=== PATIENT | female | born 1990 | race Caucasian/White ===

== ENCOUNTER 2025-03-19 19:45 | Outpatient (REF) | payer OTHER, SELFPAY ==
--- OUTSIDE RECORDS SUMMARY | 2025-03-19 14:30 | XMS_ITS | Encounter Summary ---
Author Organization [facility] Address [address] [facility] [place] [address] Care Team Providers Care Supervisor Operations Name Role Phone Juan Miguel Giordano MD Primary Care Provider [phone] Bety Jackson MD Unavailable Reason for Visit * Reason Comments Well Women Visit Encounter Details Date Type Department Care Team (Late Contact Info) Description 03/19/2025 2:30 PM EDT Office Visit [facility] OB [address] [place] [phone] [place] DO [address] [facility] [place] [address] Well woman exam with routine gynecological exam; Breast lump on right side at 10 o'clock position Social History Tobacco Use Types Packs/Day Years Used Date Smoking Tobacco: Never Smokeless Tobacco: Never Alcohol Use Standard Drinks/Week Comments Not Currently 0 (1 standard drink = 0.6 oz pur e alcohol) Comments Unknown Sex and Gender Information Value Date Recorded Sex Assigned at Not on file Legal Sex Female 6:46 PM EDT Gender Identity Not on file Sexual Orientation Not on file documented as of this encounter Last Filed Vital Signs Vital Sign Reading Time Taken Comments Blood Pressure 140/88 03/19/2025 2:49 PM EDT Pulse - - Temperature - - Respiratory Rate - - Oxygen Saturation - - Inhaled Oxygen Concentration - - Weight 68.9 kg (151 lb 12.8 oz) 03/19/2025 2:49 PM EDT Height - - Body Mass Index 22.42 04/06/2021 12:00 PM EDT documented in this encounter Plan of Treatment Upcoming Encounters Date Type Department Care Team (Late st Contact Info) Description 03/22/2025 1:30 PM EDT Office Visit [facility] [address] [facility] [place] [address] Juan Miguel Butt, DPAleida [address] [facility] [place] [address] 03/24/2026 3:00 PM EDT Office Visit [facility] OB [address] [facility] [place] [address] [place]es, DO [address] [facility] [place] [address] Scheduled Orders Name Type Priority Associated Diagnoses Orde r Schedule Pap Smear Pathology and Cytology Routine Well woman exam with routine gynecological exam Ordered: 03/19/2025 HPV DNA probe, amplified Microbiology Routine Well woman exam with routine gynecological exam Ordered: 03/19/2025 Bilateral diagnostic mammogram Imaging Routine Breast lump on right side at 10 o'clock position Expected: 03/19/2025 (Approximate), Expires: 05/20/2026 documented as of this encounter Visit Diagnoses Diagnosis Well woman exam with routine gynecological exam Routine gynecological examination Breast lump on right side at 10 o'clock position Lump or mass in breast documented in this encounter Care Teams Supervisor Operations Relationship Specialty Start Date End Date Juan Miguel Giordano MD [address] [place] [phone] PCP - General 02/07/25 Bety Jackson MD [address] [place] [address] Referring Physician Family Medicine 02/07/25 documented as of this encounter
--- OUTSIDE RECORDS SUMMARY | 2025-03-19 19:49 | XMS_ITS | Encounter Summary ---
Author Organization [facility] Address [address] [place] [address] Care Team Providers Care Dray Truck Driver Name Role Phone Ramirez Bob Primary Care Provider [phone] Source Comments In the event this information is protected by the Federal Confidentiality of Alcohol and Drug AbusePatient Records regulations: The Federal rules restrict any use of the information to criminally investigate or prosecute any alcohol or drug abuse patient.[facility] Encounter Details Date Type Department Care Team (Late st Contact Info) Description 07/09/2020 Patient Msg Rheumatology [address] [phone] Omaira Guzman MD [address] [place], [place] [id number] 07/09 lab results Social History Tobacco Use Types Packs/Day Years Used Date Smoking Tobacco: Never PHQ-2 Answer Date Recorded PHQ-2 score 2 05/09/2020 Comments Unknown Sex and Gender Information Value Date Recorded Sex Assigned at Not on file Legal Sex Female 4:20 PM EDT Gender Identity Not on file Sexual Orientation Not on file COVID-19 Exposure Response Date Recorded In the last month, have you been in contact with someone who was confirmed or suspected to have Coronavirus / COVID-19? No / Unsure 07/09/2020 2:06 PM EDT documented as of this encounter Plan of Treatment Not on file documented as of this encounter Visit Diagnoses Not on filedocumented in this encounter Care Teams Dray Truck Driver Relationship Specialty Start Date End Date Ramirez Bob PA [address] [place] [address] PCP - General Family Medicine 04/13/19 documented as of this encounter
--- OUTSIDE RECORDS SUMMARY | 2025-03-19 19:49 | XMS_ITS | Encounter Summary ---
Author Organization [facility] Address [address] [place] [address] Care Team Providers Care Family Support Specialist Name Role Phone Ramirez Bob Primary Care Provider [phone] Source Comments In the event this information is protected by the Federal Confidentiality of Alcohol and Drug AbusePatient Records regulations: The Federal rules restrict any use of the information to criminally investigate or prosecute any alcohol or drug abuse patient.[facility] Encounter Details Date Type Department Care Team (Late st Contact Info) Description 10/25/2020 Patient Msg Rheumatology [address] [place] [address] Omaira Guzman MD [address] [place], [place] [phone] 10/24 lab results Social History Tobacco Use Types Packs/Day Years Used Date Smoking Tobacco: Never PHQ-2 Answer Date Recorded PHQ-2 score 2 05/09/2020 Area Deprivation Index Answer Date Nathan rded National Score (1-100), lower number is lower ri sk Not on file 08/17/2020 State Score (1-10), lower number is lower risk N ot on file 08/17/2020 Data from: https://www.neighborhoodatlas.medicine.[facility].edu/. Last address used for calculation Not on file 08/17/2020 Comments Unknown Sex and Gender Information Value Date Recorded Sex Assigned at Not on file Legal Sex Female 4:20 PM EDT Gender Identity Not on file Sexual Orientation Not on file COVID-19 Exposure Response Date Recorded In the last month, have you been in contact with someone who was confirmed or suspected to have Coronavirus / COVID-19? Unable to assess 10/24/2020 4:52 PM EST documented as of this encounter Plan of Treatment Not on file documented as of this encounter Visit Diagnoses Not on filedocumented in this encounter Care Teams Family Support Specialist Relationship Specialty Start Date End Date Ramirez Bob PA [address] [place], [place] [address] [place] [address] PCP - General Family Medicine 04/13/19 documented as of this encounter
--- OUTSIDE RECORDS SUMMARY | 2025-03-19 19:49 | XMS_ITS | Encounter Summary ---
Author Organization [facility] Address [address] [place] [address] Care Team Providers Care Skin Care Consultant Name Role Phone Unavailable Primary Care Provider Unavailabl e Encounter Details Date Type Department Care Team (Late st Contact Info) Description 03/07/2019 Transcribe Orders [facility] Orthopedic and Sports Medicine [address] [facility] [place] [address] Transcribed, External Positive KRISTINA (antinuclear antibody) (Primary Dx); Systemic lupus erythematosus, unspecified SLE type, unspecified organ involvement status (HCC) Social History Tobacco Use Types Packs/Day Years Used Date Smoking Tobacco: Never Assessed Comments Unknown Sex and Gender Information Value Date Recorded Sex Assigned at Not on file Legal Sex Female 1:14 PM EDT Gender Identity Not on file Sexual Orientation Not on file documented as of this encounter Plan of Treatment Not on file documented as of this encounter Visit Diagnoses Diagnosis Positive KRISTINA (antinuclear antibody)- Primary Other and unspecified nonspecific immunological findings Systemic lupus erythematosus, unspecified SLE type, unspecified organ involvement status (HCC) documented in this encounter
--- OUTSIDE RECORDS SUMMARY | 2025-03-19 19:49 | XMS_ITS | Clinical Summary ---
Author Organization [facility] Address [address] [place] [address] Care Team Providers Care Deputy Clerk Of Court Name Role Phone Amrita Rojas DMD, MD Unavailable [phone] Source Comments The following information is NOT included in Care Everywhere downloads:Psychiatric notes, ECG results, Cardiac Rehab notes, Pulmonary Function notes, data from SmartForms (includes but not limited toPregnancy data,audiograms, eye exams, pre-surgical evaluation notes, well-child exam data).[facility] Medications chlorhexidine (Peridex) 0.12 % oral solution Take 15 mL by mouth 2 times daily for 7 days. Swish and spit 15ml BID after meals. Rinse for 30 seconds and then gently spit. Do not swallow. 473 mL 07/10/2024 Active Immunizations Immunization Administration Dates Next Due Hep B (peds/adol, 3-dose) (CVX=08) 01/14/2009,,08/30/2008 Influenza, injectable, quadr ivalent, preservative free (FFO=603) 08/06/2022,09/14/2021 Influenza, injectable, triva lent, preservative (PWF=779) 06/22/2023 Influenza, injectable, triva lent, preservative free (BEZ=734) 10/05/2017 Social History Tobacco Use Types Packs/Day Years Used Date Smoking Tobacco: Never Assessed [facility] Utilities Answer Date Recorded In the past 12 months has Daily [employer], gas, oil, or water [employer] threatened to shut off services in your home? No 07/10/2024 Humiliation, Afraid, Rape, and Kick questionnair e Answer Date Recorded Within the last year, have y ou been afraid of your partner or ex-partner? No 07/10/2024 Within the last year, have y ou been humiliated or emotionally abused in other ways by your partner or ex-partner? No Within the last year, have y ou been kicked, hit, slapped, or otherwise physically hurt by your partner or ex-partner? No 07/10/2024 Within the last year, have y ou been raped or forced to have any kind of sexual activity by your partner or ex-partner? No 07/10/2024 Social Connection and Isolat ion Panel [NHANES] Answer Date Recorded In a typical week, how many times do you talk on the phone with family, friends, or neighbors? Three times a week 07/10/2024 How often do you get togethe r with friends or relatives? More than three times a week 07/10/2024 How often do you attend [facility] or [facility] services? Patient declined 07/10/2024 Do you belong to any clubs o r organizations such as faith groups, unions, fraternal or athletic groups, or school groups? Patient declined 07/10/2024 How often do you attend meet ings of the clubs or organizations you belong to? Patient declined 07/10/2024 Are you , , di vorced, , never , or living with a partner? Never 07/10/2024 Overall Financial Resource Strain (CARDIA) Answe r Date Recorded How hard is it for you to pa y for the very basics like food, housing, medical care, and heating? Somewhat hard 07/10/2024 [facility] of Occupat ional Health - Occupational Stress Questionnaire Answer Date Recorded Do you feel stress - tense, restless, nervous, or anxious, or unable to sleep at night because your mind is troubled all the time - these days? To some extent 07/10/2024 Exercise Vital Sign Answer Date Recorde d On average, how many days pe r week do you engage in moderate to strenuous exercise (like a brisk walk)? 5 days 07/10/2024 On average, how many minutes do you engage in exercise at this level? 30 min 07/10/2024 Hunger Vital Sign Answer Date Recorded Within the past 12 months, y ou worried that your food would run out before you got the money to buy more. Never true 07/10/20 24 Within the past 12 months, t he food you bought just didn't last and you didn't have money to get more. Never true 07/10/2024 PRAPARE - Transportation Answer Date Re corded In the past 12 months, has l ack of transportation kept you from medical appointments or from getting medications? No 06/13 In the past 12 months, has l ack of transportation kept you from meetings, work, or from getting things needed for daily living? No 07/10/2024 Housing Stability Vital Sign Answer Saul e Recorded In the last 12 months, was t here a time when you were not able to pay the mortgage or rent on time? Yes 07/10/2024 Number of Times Moved in the Last Year Not on fi le 07/10/2024 At any time in the past 12 m [facility], were you homeless or living in a half-way (including now)? No 07/10/2024 Utilities - Historical Answer Date Nathan rded In the past 12 months has th e electric, gas, oil, or water company threatened to shut off services in your home? No 07/10/2024 Education Answer Date Recorded What is the highest level of school you have completed or the highest degree you have received? Associate degree: occupational, technical, or vocational program 07/10/2024 Comments Unknown Sex and Gender Information Value Date Recorded Sex Assigned at Not on file Legal Sex Female 3:15 PM EST Gender Identity Not on file Sexual Orientation Not on file Last Filed Vital Signs Vital Sign Reading Time Taken Comments Blood Pressure 118/72 07/10/2024 1:46 PM EDT Pulse 81 07/10/2024 1:46 PM EDT Temperature 36.4 C (97.6 F) 07/10/2024 1:46 PM EDT Respiratory Rate 22 07/10/2024 1:46 PM EDT Oxygen Saturation 99% 07/10/2024 1:46 PM EDT Inhaled Oxygen Concentration - - Weight 66.2 kg (145 lb 15.1 oz) 024 11:00 AM EDT Height 177.8 cm (5' 10 ) 07/10/2024 11: 00 AM EDT Body Mass Index 20.94 07/10/2024 11:00 AM EDT Plan of Treatment Health Maintenance Due Date Last Done Comments HIV Test 2007 Hepatitis B (HBV) Vaccine (3 of 3 - 3-dose series) 03/11/2009 01/14/2009, 09/20/2008, 08/30/2008 Tdap Booster 2010 Hepatitis A (HAV) Vaccine (optional start 19+ years) 2011 Pap Smear 2013 HPV Vaccine (optional start 27-45 years) 2019 COVID-19 Vaccine ( season) 2024 08/04/2021 Influenza Vaccine (#1) 2025 , 08/06/2022, 09/14/2021, Additional history exists Shingles (RZV) Vaccine (1 of 2) 2042 Hepatitis C Antibody Completed 08/03/2019 Mammography Discontinued Pneumococcal Vaccine(s) Aged Out No l onger eligible based on patient's age to complete this topic Insurance [facility] Care Teams Deputy Clerk Of Court Relationship Specialty Start Date End Date Amrita Rojas DMD, MD [address] [place] [address] Physician Oral & Maxillofacial Surgery 05/19/24
--- OUTSIDE RECORDS SUMMARY | 2025-03-19 19:49 | XMS_ITS | Encounter Summary ---
Author Organization [facility] Address [address] [place] [address] Care Team Providers Care Nut Tapper Name Role Phone Juan Miguel Giordano MD Primary Care Provider [phone] Bety Jackson MD Unavailable Encounter Details Date Type Department Care Team (Late Contact Info) Description 03/19/[address] [address] [place] [address] Kaitlin Villalobos LPN Social History Tobacco Use Types Packs/Day Years [...] on file documented as of this encounter Miscellaneous Notes * Telephone Encounter - Kaitlin Villalobos LPN - 03/19/2025 3:48 PM EDT Please refer to physical therapy for evaluation of plantar fasciitis, and hip pain. documented in this encounter Plan of Treatment Upcoming Encounters Date Type Department Care Team (Late st Contact Info) Description 03/22/2025 1:30 PM EDT Office Visit [facility] [address] [place] [address] Juan Miguel Butt, DPAleida [address] [place] [address] 03/24/2026 3:00 PM EDT Office Visit [facility] OB [address] [facility] [address] [place] DO [address] [place] [address] documented as of this encounter Visit Diagnoses Not on filedocumented in this encounter Care Teams Nut Tapper Relationship Specialty Start Date End Date Juan Miguel Giordano MD [address] [place] [phone] PCP - General 02/07/25 Bety Jackson MD [address] [place] [address] Referring Physician Family Medicine 02/07/25 documented as of this encounter
--- OUTSIDE RECORDS SUMMARY | 2025-03-19 19:49 | XMS_ITS | Encounter Summary ---
Author Organization [facility] Address [address] [place] [address] Care Team Providers Care Cereal Miller Name Role Phone Ramirez Bob Primary Care Provider [phone] Source Comments In the event this information is protected by the Federal Confidentiality of Alcohol and Drug AbusePatient Records regulations: The Federal rules restrict any use of the information to criminally investigate or prosecute any alcohol or drug abuse patient.[facility] Encounter Details Date Type Department Care Team (Late st Contact Info) Description 05/01/2021 Patient Msg Rheumatology [address] [phone] Provider, Ccf Letter Social History Tobacco Use Types Packs/Day Years Used Date Smoking Tobacco: Never PHQ-2 Answer Date Recorded PHQ-2 score 2 05/09/2020 Area Deprivation Index Answer Date Nathan rded National Score (1-100), lower number is lower ri sk Not on file 08/17/2020 State Score (1-10), lower number is lower risk N ot on file 08/17/2020 Data from: https://www.neighborhoodatlas.medicine.[facility].edu/. Last address used for calculation Not on [...] on filedocumented in this encounter Care Teams Cereal Miller Relationship Specialty Start Date End Date Ramirez Bob PA [facility] [place] [address] PCP - General Family Medicine 04/13/19 documented as of this encounter
--- OUTSIDE RECORDS SUMMARY | 2025-03-19 19:49 | XMS_ITS | Encounter Summary ---
Author Organization [facility] Address [address] [place] [address] Care Team Providers Care Entry Table Operator Name Role Phone Ramirez Bob Primary Care Provider [phone] Source Comments In the event this information is protected by the Federal Confidentiality of Alcohol and Drug AbusePatient Records regulations: The Federal rules restrict any use of the information to criminally investigate or prosecute any alcohol or drug abuse patient.[facility] Encounter Details Date Type Department Care Team (Late st Contact Info) Description 05/12/2020 Patient Msg Rheumatology [address] [place] [address] Omaira Guzman MD [address] [place], [place] [phone] 05/09 lab results Social History Tobacco Use Types [...] have Coronavirus / COVID-19? No / Unsure 05/15/2020 11:52 AM EDT documented as of this encounter Plan of Treatment Not on file documented as of this encounter Visit Diagnoses Not on filedocumented in this encounter Care Teams Entry Table Operator Relationship Specialty Start Date End Date Ramirez Bob PA [address] [place] [address] PCP - General Family Medicine 04/13/19 documented as of this encounter
--- OUTSIDE RECORDS SUMMARY | 2025-03-19 19:49 | XMS_ITS | Encounter Summary ---
Author Organization [facility] Address [address] [facility] [place] [address] Care Team Providers Care Technology Support Analyst Name Role Phone Juan Miguel Giordano MD Primary Care Provider [phone] Bety Jackson MD Unavailable Encounter Details Date Type Department Care Team (Late Contact Info) Description 03/19/2025 Bamboo flowsheet [facility] OB [address] [place] [address] [place]es, [address] [facility] [address] [place], [facility] Social History Tobacco Use Types Packs/Day Years [...] as of this encounter Plan of Treatment Upcoming Encounters Date Type Department Care Team (Late Contact Info) Description 03/22/2025 1:30 PM EDT Office Visit [facility] [address] [place] [phone] Juan Miguel Butt DPM [address] [place] [address] 03/24/2026 3:00 PM EDT Office Visit [facility] OB [address] [place] [address] Lake Cabrales DO [address] [place] [address] [place] [address] documented as of this encounter Visit Diagnoses Not on filedocumented in this encounter Care Teams Technology Support Analyst Relationship Specialty Start Date End Date Juan Miguel Giordano MD [address] [place] [address] PCP - General 02/07/25 Bety Jackson MD [address] [place] [address] Referring Physician Family Medicine 02/07/25 documented as of this encounter
--- OUTSIDE RECORDS SUMMARY | 2025-03-19 19:49 | XMS_ITS | Encounter Summary ---
Author Organization [facility] Address [address] [place] [address] Care Team Providers Care Public Works Manager Name Role Phone Ramirez Bob Primary Care Provider [phone] Source Comments In the event this information is protected by the Federal Confidentiality of Alcohol and Drug AbusePatient Records regulations: The Federal rules restrict any use of the information to criminally investigate or prosecute any alcohol or drug abuse patient.[facility] Encounter Details Date Type Department Care Team (Late st Contact Info) Description 04/27/2021 Patient Msg Rheumatology [address] [phone] Provider, Ccf Results Social History Tobacco Use Types Packs/Day Years Used Date Smoking Tobacco: Never PHQ-2 Answer Date Recorded PHQ-2 score 2 05/09/2020 Area Deprivation Index Answer Date Nathan rded National Score (1-100), lower number is lower ri sk Not on file 08/17/2020 State Score (1-10), lower number is lower risk N ot on file 08/17/2020 Data from: https://www.neighborhoodatlas.medicine.[facility].edu/. Last address used for calculation Not on [...] on filedocumented in this encounter Care Teams Public Works Manager Relationship Specialty Start Date End Date Ramirez Bob PA [facility] [place] [address] PCP - General Family Medicine 04/13/19 documented as of this encounter
--- OUTSIDE RECORDS SUMMARY | 2025-03-19 19:49 | XMS_ITS | Clinical Summary ---
Author Organization [facility] Address [address] [place] [address] Care Team Providers Care Tube Trailer Filler Name Role Phone Ramirez Bob Primary Care Provider Allergies Active Allergy Reactions Criticality Noted Date Comments Oxaprozin Hives 12/05/2012 Medications amphetamine-dex troamphetamine (ADDERALL XR) 10 MG extended release capsule TAKE 1 CAPSULE BY MOUTH DAILY FOR 30 DAYS 0 01/26/2019 Active amphetamine-dex troamphetamine (ADDERALL XR) 30 MG extended release capsule TAKE 1 CAPSULE BY MOUTH DAILY IN THE MORNING 0 01/26/2019 Active albuterol sulfate HFA 108 (90 Base) MCG/ACT inhaler 2 puff(s), Inhalation, q4hr for wheezing, 1 EA, Refill(s) 0, Picklive #16, 175, cm, 05/13/21 13:23:00 EDT, Height/Length Dosing, 85.1, kg, 05/13/21 13:23:00 EDT, Weight Dosing 05/13/2021 Active ASPIRIN LOW DOSE 81 MG chewable tablet TAKE 1 TABLET BY MOUTH DAILY 05/13/2021 Active HYDROcodone-bernard taminophen (NORCO) 5-325 MG per tablet Take by mouth. 04/21/2021 Active hydroxychloroqu ine (PLAQUENIL) 200 MG tablet Take 300 mg by mouth daily 2021 Active azaTHIOprine (IMURAN) 50 MG tablet Take 125mg/day (2.5 tablets/day) 02/03/2021 Active tiZANidine (ZANAFLEX) 4 MG tablet TAKE 1 (ONE) or 2 (TWO) tablets BY MOUTH EVERY EIGHT HOURS NEEDED for muscle spasms 03/30/2021 Active metoprolol tartrate (LOPRESSOR) 50 MG tabletIndicatio ns:SOB (shortness of breath) Take 1 tablet by mouth 2 times daily 60 tablet 11 10/06/2021 Active NIFEdipine (PROCARDIA XL) 60 MG extended release tablet Take 1 tablet by mouth 2 times daily 60 tablet 11 10/06/2021 Active Immunizations Immunization Administration Dates Next Due Hepatitis B 09/20/2008,08/20/2008 Influenza Virus Vaccine 07/18/2019,07/11/2018 Family History Medical History Relation Name Comments Diabetes Other family history High Blood Pressure Other family h istory Relation Name Status Comments Other Social History Tobacco Use Types Packs/Day Years Used Date Smoking Tobacco: Never Smokeless Tobacco: Never Comments No Sex and Gender Information Value Date Recorded Sex Assigned at Not on file Legal Sex Female 9:48 PM EST Gender Identity Not on file Sexual Orientation Not on file Last Filed Vital Signs Vital Sign Reading Time Taken Comments Blood Pressure 120/60 10/27/2021 12:14 PM EST Pulse 70 10/27/2021 12:05 PM EST Temperature 37.3 C (99.2 F) 12/06/2012 12:30 AM EDT Respiratory Rate 18 12/06/2012 12:30 AM EDT Oxygen Saturation 98% 10/27/2021 12:05 PM EST Inhaled Oxygen Concentration - - Weight 81.6 kg (180 lb) 10/27/2021 12:05 PM EST Height - - Body Mass Index - - Plan of Treatment Health Maintenance Due Date Last Done Comments Depression Screen 2004 Varicella vaccine (1 of 2 - 13+ 2-dose series) 2005 HIV screen 2007 Hepatitis B vaccine (3 of 3 - 3-dose series) 03/11/2009 01/14/2009, 09/20/2008, 08/30/2008, Additional history exists Hepatitis C screen 2010 DTaP/Tdap/Td vaccine (1 - Tdap) 2011 Pneumococcal 0-49 years Vaccine (1 of 2 - PCV) 2011 Shingles vaccine (1 of 2) 2011 Pap smear 2013 COVID-19 Vaccine (2 - Esperanza risk series) 09/01/2021 08/04/2021 Cervical cancer screen 2022 HPV (without or with Pap) 2022 Flu vaccine (#1) 04/12/2025 09/14/2021, 02/2019, 07/11/2018 HPV vaccine Aged Out No longer eligi ble based on patient's age to complete this topic Hepatitis A vaccine Aged Out No longe r eligible based on patient's age to complete this topic Hib vaccine Aged Out No longer eligi ble based on patient's age to complete this topic Meningococcal (ACWY) vaccine Aged Out No longer eligible based on patient's age to complete this topic Meningococcal B vaccine Aged Out No l onger eligible based on patient's age to complete this topic Polio vaccine Aged Out No longer elig ible based on patient's age to complete this topic Additional Health Concerns Infection Onset Date Last Indicated MRSA 02/01/2019 02/01/2019 Insurance [employer] Care Teams Tube Trailer Filler Relationship Specialty Start Date End Date Ramirez Bob PA [address] [place] [address] [place] [address] PCP - General Physician Hydraulic Press Tender 07/04/18
--- OUTSIDE RECORDS SUMMARY | 2025-03-19 19:49 | XMS_ITS | Clinical Summary ---
Author Organization [facility] Address [address] [place] [address] Care Team Providers Care Charcoal Unloader Name Role Phone Juan Miguel Giordano MD Primary Care Provider Bety Jackson MD Unavailable Allergies Active Allergy Reactions Criticality Noted Date Comments Ibuprofen 06/19/2019 Ketorolac Tromethamine Unknown 02/07/2025 Naproxen Unknown 02/07/2025 Oxaprozin Hives,Unknown Low 12/05/2012 Other reaction(s): Unknown Medications acetaminophen (Tylenol) 325 MG tablet TAKE 2 TABLETS BY MOUTH EVERY 6 HOURS NEEDED FOR PAIN for up to 7 (SEVEN) days Active amphetamine-dex troamphetamine (Adderall) 10 MG tablet every 12 (twelve) hours Active amphetamine-dex troamphetamine (Adderall) 30 MG tablet every 12 (twelve) hours Active metoprolol succinate XL (Toprol-XL) 25 MG 24 hr tablet Take 25 mg by mouth Daily 01/11/2025 Active tiZANidine (Zanaflex) 4 MG tablet TAKE 1 TABLET BY MOUTH EVERY 8 HOURS NEEDED FOR 30 DAYS for spasm Active HYDROcodone-bernard taminophen ([place]) 5-325 MG tablet Active folic acid (Folvite) 400 MCG tablet Take by mouth Daily Active magnesium oxide (Mag-Ox) 400 mg tablet 400 mg Daily Active saccharomyces boulardii (Florastor) 250 MG capsule Take 250 mg by mouth in the morning and 250 mg before bedtime. Active Encounters Date Type Department Care Team Description 03/19/2025 2:30 PM EDT Office Visit [facility] [address] [facility] [place] [address] [place], DO Well woman exam with routine gynecological exam; Breast lump on right side at 10 o'clock position 03/19/2025 Telephone [facility] [address] [facility] [place] [address] Kaitlin Villalobos LPN 03/19/2025 Bamboo flowsheet [facility] [address] [facility] [place] [address] [place] DO 02/26/2025 8:00 AM EDT Ancillary Procedure [facility] [address] [place] [phone] Right foot pain 02/25/2025 2:15 PM EDT Procedure Visit [facility] [address] [place] [phone] Juan Miguel Butt DPM Right foot pain (Primary Dx); Plantar fasciitis; Acquired equinus deformity of both feet; Pain in joint involving right ankle and foot; Peroneal tendinitis of right lower extremity; Right foot drop; Lumbar radiculopathy 02/25/2025 Bamboo flowsheet [facility] [address] [place] [phone] Juan Miguel Butt DPM 02/25/2025 Travel 02/07/2025 2:30 PM EDT Ancillary Procedure [facility] [address] [place] [phone] 02/07/2025 2:15 PM EDT Office Visit [facility] [address] [place] [phone] Juan Miguel Butt DPM Plantar fasciitis (Primary Dx); Right foot pain; Acquired equinus deformity of both feet; Pain in joint involving right ankle and foot 02/07/2025 Bamboo flowsheet [facility] [address] [place] [phone] Juan Miguel Butt DPM 02/07/2025 Travel from Last 3 Months Social History Tobacco Use Types Packs/Day Years Used Date Smoking Tobacco: Never Smokeless Tobacco: Never Tobacco Cessation:Counseling Given: Not Answered Alcohol Use Standard Drinks/Week Comments Not Currently [...] Pressure 140/88 03/19/2025 2:49 PM EDT Pulse 86 02/25/2025 5:19 PM EDT Temperature - - Respiratory Rate - - Oxygen Saturation - - Inhaled Oxygen Concentration - - Weight 68.9 kg (151 lb 12.8 oz) 03/19/2025 2:49 PM EDT Height 175.3 cm (5' 9 ) 04/06/2021 12:0 0 PM EDT Body Mass Index 22.42 04/06/2021 12:00 PM EDT Plan of Treatment Upcoming Encounters Date Type Department Care Team (Late st Contact Info) Description 03/22/2025 1:30 PM EDT Office Visit [facility] [address] [place] [phone] Juan Miguel Butt, DPM [address] [place] [address] 03/24/2026 3:00 PM EDT Office Visit [facility] [address] [facility] [place] [address] [place], DO [address] [facility] [place] [address] Health Maintenance Due Date Last Done Comments Pap Smear 2013 Cervical Cancer Screening 2022 HPV/Cotest 2022 Influenza Vaccine (#1) 2025 3, 08/06/2022, 09/14/2021, Additional history exists Procedures Procedure Name Priority Date/Time Associated Diagnosis Comments US LOWER EXTREMITY NON-VASC RIGHT Routine 02/25/2025 6:21 PM EDT Right foot pain XR FOOT 3+ VIEWS RIGHT Routine 02/07/2025 2:25 PM EDT Right foot pain from Last 3 Months Results * US LOWER EXTREMITY NON-VASC RIGHT (02/25/2025 6:21 PM EDT) Anatomical Region Laterality Modality Right Ultrasound Narrative 02/25/2025 8:50 PM EDT US RT FOOT: Short & long axis imaging performed. ASSESSMENT: Mod per tertius synovitis near insertion. No fx, no 5th met/cun effusion. Mod central and prox signal change and mild hypertrophy PF Juan Miguel Butt DPM IMG US PROCEDURES Final Result * XR foot 3+ views right (02/07/2025 2:25 PM EDT) Anatomical Region Laterality Modality Lower Extremities, Foot Right Radiogra phic Imaging Narrative 02/10/2025 9:06 PM EDT Imaging Result: XRAY RIGHT FOOT: AP/OBL/LAT- No fx, mild bunionette with mild lat 5th met/cub joint space narrowing Juan Miguel Butt DPM IMG XR PROCEDURES Final Result from Last 3 Months Insurance [employer] Care Teams Charcoal Unloader Relationship Specialty Start Date End Date Juan Miguel Giordano MD [address] [place] [address] PCP - General 02/07/25 Bety Jackson MD [address] [place] [address] Referring Physician Family Medicine 02/07/25
--- OUTSIDE RECORDS SUMMARY | 2025-03-19 19:49 | XMS_ITS | Encounter Summary ---
Author Organization [facility] Address [address] [place] [address] Care Team Providers Care Bird Keeper Name Role Phone Ramirez Bob Primary Care Provider [phone] Source Comments In the event this information is protected by the Federal Confidentiality of Alcohol and Drug AbusePatient Records regulations: The Federal rules restrict any use of the information to criminally investigate or prosecute any alcohol or drug abuse patient.[facility] Encounter Details Date Type Department Care Team (Late st Contact Info) Description 09/16/2020 Patient Msg Rheumatology [address] [place] [address] Omaira Guzman MD [address] [place], [place] [id number] 09/16 lab results Social History Tobacco Use Types Packs/Day Years Used Date Smoking Tobacco: Never PHQ-2 Answer Date Recorded PHQ-2 score 2 05/09/2020 Area Deprivation Index Answer Date Nathan rded National Score (1-100), lower number is lower ri sk Not on file 08/17/2020 State Score (1-10), lower number is lower risk N ot on file 08/17/2020 Data from: https://www.neighborhoodatlas.medicine.[facility].edu/. Last address used for calculation [...] have Coronavirus / COVID-19? No / Unsure 09/16/2020 3:20 PM EST documented as of this encounter Plan of Treatment Not on file documented as of this encounter Visit Diagnoses Not on filedocumented in this encounter Care Teams Bird Keeper Relationship Specialty Start Date End Date Ramirez Bob PA [facility] [place] [address] PCP - General Family Medicine 04/13/19 documented as of this encounter
--- OUTSIDE RECORDS SUMMARY | 2025-03-19 19:49 | XMS_ITS | Clinical Summary ---
Author Organization [facility] Address [address] [place] [phone] Care Team Providers Care Senior Microsoft Consultant Name Role Phone Ramirez Bob PA-C Primary Care Provider [phone] Allergies Active Allergy Reactions Criticality Noted Date Comments Ibuprofen 06/19/2019 Oxaprozin Hives Low 12/05/2012 Other reaction(s): Unknown Medications pantoprazole [address] DR TAKE 1 TABLET BY MOUTH TWICE DAILY (STOMACH) 9 Active predniSONE 2.5 MG Tab tablet TAKE 1 TABLET BY MOUTH TWICE DAILY FOR 30 DAYS 2 9 Active amphetamine-dextro amphetamine XR 10 MG Cap SR 24HR TAKE 1 CAPSULE BY MOUTH DAILY FOR 30 DAYS 9 Active traMADol 50 MG Tab tablet TAKE 1 TABLET BY MOUTH EVERY 8 HOURS FOR 30 DAYS NEEDED FOR PAIN 2 9 Active Elastic Bandages & Supports (WRIST SPLINT ELASTIC/LARGE-XL) MiscIndications:Ri ght carotid bruit,Nonrheumatic mitral valve regurgitation,Mild tricuspid regurgitation,Dors algia,Cervicalgia, Bilateral carpal tunnel syndrome,Hip pain, right,Greater trochanteric bursitis of right hip,Disorder of bone and cartilage,Chronic pain of right knee,Chronic pain of both shoulders,Bilatera l wrist pain,Bilateral hand pain,Bilateral biceps tendonitis,Urticar ia,Attention deficit hyperactivity disorder (ADHD), unspecified ADHD type,Subacromial bursitis of both shoulders,Positive double stranded DNA antibody test,Miscarriage,L jose alberto term current use of systemic steroids,skilled nursing current use of non-steroidal anti-inflammatorie s (NSAID),Fatigue, unspecified type B/L wrist splints for B/L CTS 2 Each 11 9 Active Active Problems Problem Noted Date Diagnosed Date Fatigue 06/19/2019 Disorder of bone and cartilage 06/19/2019 Positive double stranded DNA antibody test 06/19 Nonrheumatic mitral valve regurgitation 06/19/20 19 Mild tricuspid regurgitation 06/19/2019 Urticaria 06/19/2019 Miscarriage 06/19/2019 ADHD 06/19/2019 skilled nursing current use of systemic steroids 06/19 skilled nursing current use of non -steroidal anti-inflammatories (NSAID) 06/19/2019 Right carotid bruit 06/19/2019 Cervicalgia 06/19/2019 Dorsalgia 06/19/2019 Chronic pain of both shoulders 06/19/2019 Bilateral biceps tendonitis 06/19/2019 Subacromial bursitis of both shoulders 9 Bilateral wrist pain 06/19/2019 Bilateral hand pain 06/19/2019 Bilateral carpal tunnel syndrome 06/19/2019 Hip pain, right 06/19/2019 Greater trochanteric bursitis of right hip 06/19 Chronic pain of right knee 06/19/2019 Social History Tobacco Use Types Packs/Day Years Used Date Smoking Tobacco: Never Smokeless Tobacco: Never Alcohol Use Standard Drinks/Week Comments Never 0 (1 standard drink = 0.6 oz pur e alcohol) AUDIT-C Answer Date Recorded Frequency of Alcohol Consumption Never 06/19/2019 Average Number of Drinks Not on file 019 Frequency of Binge Drinking Not on file 04/2019 Comments Unknown Sex and Gender Information Value Date Recorded Sex Assigned at Not on file Legal Sex Female 10:36 AM EDT Gender Identity Not on file Sexual Orientation Not on file Last Filed Vital Signs Vital Sign Reading Time Taken Comments Blood Pressure 116/68 06/19/2019 8:46 AM EDT Pulse 100 06/19/2019 8:46 AM EDT Temperature 37 C (98.6 F) 06/19/2019 8:46 AM EDT Respiratory Rate - - Oxygen Saturation 100% 06/19/2019 8:46 AM EDT Inhaled Oxygen Concentration - - Weight 79.8 kg (176 lb) 06/19/2019 8:46 AM EDT Height 175.3 cm (5' 9 ) 06/19/2019 8:46 AM EDT Body Mass Index 25.99 06/19/2019 8:46 AM EDT Plan of Treatment Health Maintenance Due Date Last Done Comments HEPATITIS C VIRUS SCREENING 1992 TETANUS 1992 HIV SCREENING DISCUSSION 2007 HEP B VACCINE (3 of 3 - 3-dose series) 03/11/2009 01/14/2009, 09/20/2008, 08/30/2008 TDAP (ADULT) 2011 CERVICAL CANCER SCREENING DISCUSSION 2013 COVID-19 VACCINE (2023-2 5 season) 2024 INFLUENZA VACCINE (Season Ended) 2025 10/05/2017 HPV VACCINE Aged Out No longer eligi ble based on patient's age to complete this topic PNEUMOCOCCAL VACCINE SERIES Aged Out No longer eligible based on patient's age to complete this topic Care Teams Senior Microsoft Consultant Relationship Specialty Start Date End Date Ramirez Bob PA-C PCP - General Physician Setter Off 04/06/19
--- OUTSIDE RECORDS SUMMARY | 2025-03-19 19:49 | XMS_ITS | Encounter Summary ---
Author Organization [facility] Address [address] [place] [address] Care Team Providers Care Email Marketing Assistant Name Role Phone Ramirez Bob Primary Care Provider [phone] Source Comments In the event this information is protected by the Federal Confidentiality of Alcohol and Drug AbusePatient Records regulations: The Federal rules restrict any use of the information to criminally investigate or prosecute any alcohol or drug abuse patient.[facility] Encounter Details Date Type Department Care Team (Late st Contact Info) Description 06/19/2020 Patient Msg Rheumatology [address] [place] [address] Omaira Guzman MD [address] [place], [place] [id number] 05/15 blood test result Social History Tobacco Use Types Packs/Day Years [...] on filedocumented in this encounter Care Teams Email Marketing Assistant Relationship Specialty Start Date End Date Ramirez Bob PA [address] [place] [address] PCP - General Family Medicine 04/13/19 documented as of this encounter
--- OUTSIDE RECORDS SUMMARY | 2025-03-19 19:49 | XMS_ITS | Clinical Summary ---
Author Organization [facility] Address [address] [place] [address] Care Team Providers Care County Surveyor Name Role Phone Ramirez Bob Primary Care Provider [phone] Allergies Active Allergy Reactions Criticality Noted Date Comments Oxaprozin Hives 08/03/2019 Medications Amphetamine-Dext roamphetamine (ADDERALL) 30 mg tablet Take 30 mg by mouth twice daily. Active HYDROcodone-acet aminophen (NORCO) 5-325 mg per tablet Take 1 tablet by mouth every 8 hours as needed. Active tiZANidine (ZANAFLEX) 4 mg tablet Take 4 mg by mouth every 6 hours as needed. Taking 2 tablets 2 times daily as needed Active PARoxetine (PAXIL) 40 mg tablet Take 40 mg by mouth once daily. Active hydrOXYchloroQUI NE (PLAQUENIL) 200 mg tabletIndication s:Undifferentiat ed connective tissue disease (HCC),Systemic lupus erythematosus, unspecified SLE type, unspecified organ involvement status (HCC) Take 1.5 tablets by mouth once daily. 135 tablet 1 08/04/2021 Active azaTHIOprine (IMURAN) 50 mg tablet Take 125mg/day (2.5 tablets/day) 225 tablet 08/04/2021 Active Active Problems Problem Noted Date Diagnosed Date Undifferentiated connective tissue disease 05/09 Long-term use of Plaquenil 05/09/2020 Essential hypertension 08/03/2019 Resolved Problems Problem Noted Date Diagnosed Date Resolved Date Systemic lupus erythematosus 08/03/2019 05/09/2020 Social History Tobacco Use Types Packs/Day Years Used Date Smoking Tobacco: Never Tobacco Cessation:Counseling Given: No PHQ-2 Answer Date Recorded PHQ-2 score 2 05/09/2020 Area Deprivation Index Answer Date Nathan rded National Score (1-100), lower number is lower ri sk 67 09/24/2022 State Score (1-10), lower number is lower risk N ot on file 09/24/2022 Data from: https://www.neighborhoodatlas.medicine.[facility]/. Last address used for calculation [address] 09/24/2022 Comments Unknown Sex and Gender Information Value Date Recorded Sex Assigned at Not on file Legal Sex Female 4:20 PM EDT Gender Identity Not on file Sexual Orientation Not on file Last Filed Vital Signs Vital Sign Reading Time Taken Comments Blood Pressure 138/89 02/03/2021 1:38 PM EDT Pulse 112 02/03/2021 1:38 PM EDT Temperature 37.1 C (98.7 F) 02/03/2021 1:38 PM EDT Respiratory Rate - - Oxygen Saturation - - Inhaled Oxygen Concentration - - Weight 83.9 kg (185 lb) 02/03/2021 1:38 PM EDT Height 175.3 cm (5' 9 ) 02/03/2021 1:38 PM EDT Body Mass Index 27.32 02/03/2021 1:38 PM EDT Plan of Treatment Health Maintenance Due Date Last Done Comments Hepatitis B Vaccine (3 of 3 - 3-dose series) 12/10/2008 09/20/2008, 08/20/2008 Anxiety Screening 2010 Depression Screening 2010 HIV Screening 2010 DTaP,Tdap,Td Vaccine (1 - Tdap) 2011 Cervical Cancer Screening 2013 Covid-19 Vaccine ( season) 2024 Influenza Vaccine (#1) 2025 07/18/2019, 2017 Hepatitis C Screening Completed 08/03/2019 Procedures Procedure Name Priority Date/Time Associated Diagnosis Comments *HEP C AB Routine 08/03/2019 12:44 PM EST Systemic lupus erythematosus, unspecified SLE type, unspecified organ involvement status (HCC) from Last 3 Months or Most Recently Relevant to Health Maintenance Results * HEP REMOTE PANEL BL (08/03/2019 12:44 PM EST) Hep B Core Ab, Total Negative Negative 08/05/2019 12:20 PM EST [facility] Hep C Antibody IA Negative Negative 08/05/2019 12:22 PM EST [facility] HBsAg Negative Negative 08/05/2019 12:21 PM EST [facility] Hep B Surface Ab, Qual Negative Negative 08/05/2019 2:43 PM EST [facility] Comment:NEGATIVE Blood specimen (specimen) BLOOD SPECIMEN / Unknown 08/03/2019 12:44 PM EST 08/03/2019 12:46 PM EST us Omaira Guzman MD LABORATORY Final Result [facility] [address] [place] [address] [facility] [address] [place] [address] from Last 3 Months or Most Recently Relevant to Health Maintenance Insurance [employer] Care Teams County Surveyor Relationship Specialty Start Date End Date Ramirez Bob PA [address] [place] [address] [place] [address] PCP - General Family Medicine 04/13/19
--- OUTSIDE RECORDS SUMMARY | 2025-03-19 19:49 | XMS_ITS | Patient Health Record ---
Author Organization [facility] Address [address] [place] [address] Care Team Providers Care Juice Weigher Name Role Phone [place] Unavailable [phone] Allergies Allergen (clinical drug ingredient) Drug/Non Drug Allergy documented on EMR Reaction Allergy Type Onset Date Status oxaprozin Daypro Unknown Drug Allergy Active naproxen Aleve Unknown Drug Allergy Active Toradol Unknown Drug Allergy Active naproxen Unknown Drug Allergy Active Reason For Referral No Information Medications Medication SIG (Take, Route, Fr equency, Duration) Notes Start Date End Date Status furosemide Active Adderall 30 mg orally Activ e Adderall 10 mg orally Activ e Procardia XL Active Tramadol Active Plaquenil Active Flexeril Active Cymbalta Active Imuran Active [place] Active Social History Tobacco Use: Social History Observation Description Date Details (start date - stop date) Never Smoker NA - NA Smoking History Question Answer Notes Smoking Status NonSmoker Problems Problem Type SNOMED Code ICD Code Onset Dates Problem Status W/U Status Risk Notes Problem Pain of right knee region (finding) (090938852503736) Pain in right knee (M25.561) Active confirmed Problem 338366166 Lupus (M32.9) Active confirmed Problem 68343821 Other chronic pain (G89.29) Active confirmed Problem Shoulder joint pain (762472572) Pain in left shoulder (M25.512) Active confirmed Problem [id number] Pain in left kne e (M25.562) Active confirmed Problem 72423408 Polyarthralgia (M25.50) Active confirmed Plan Of Treatment No Information Insurance Providers Payer Name Payer Address Payer Phone Subscriber Number Group Number Insured Name Patient Relationship to Insured Coverage Start Date Coverage End Date [facility] [place] [place] [address] [place] [address] [id number] NICOLE ELIZABETH Self - patient is the insured Medical (General) History Medical History History ICD Code High Blood Pressure: Yes Anxiety: Yes Drug Allergies: Yes Have you ever had or presently have MRSA ? 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
--- OUTSIDE RECORDS SUMMARY | 2025-03-19 19:49 | XMS_ITS | Encounter Summary ---
Author Organization [facility] Address [address] [place] [id number] Care Team Providers Care Inspector Structural Bonding Name Role Phone Ramirez Bob Primary Care Provider [phone] Source Comments In the event this information is protected by the Federal Confidentiality of Alcohol and Drug AbusePatient Records regulations: The Federal rules restrict any use of the information to criminally investigate or prosecute any alcohol or drug abuse patient.[facility] Encounter Details Date Type Department Care Team (Late st Contact Info) Description 02/05/2021 Patient Msg Rheumatology [address] [place] [address] Omaira Guzman MD [address] [place], [place] [id number] 02/03 lab results Social History Tobacco Use Types Packs/Day Years Used Date Smoking Tobacco: Never PHQ-2 Answer Date Recorded PHQ-2 score 2 05/09/2020 Area Deprivation Index Answer Date Nathan rded National Score (1-100), lower number is lower ri sk Not on file 08/17/2020 State Score (1-10), lower number is lower risk N ot on file 08/17/2020 Data from: https://www.neighborhoodatlas.medicine.[facility].edu/. Last address used for calculation Not [...] have Coronavirus / COVID-19? Unable to assess 02/03/2021 2:02 PM EDT documented as of this encounter Plan of Treatment Not on file documented as of this encounter Visit Diagnoses Not on filedocumented in this encounter Care Teams Inspector Structural Bonding Relationship Specialty Start Date End Date Ramirez Bob PA [facility] [place] [address] PCP - General Family Medicine 04/13/19 documented as of this encounter
--- OUTSIDE RECORDS SUMMARY | 2025-03-19 19:49 | XMS_ITS | Encounter Summary ---
Author Organization [facility] Address [address] [place] [address] Care Team Providers Care Loan Expeditor Name Role Phone Ramirez Bob Primary Care Provider [phone] Source Comments In the event this information is protected by the Federal Confidentiality of Alcohol and Drug AbusePatient Records regulations: The Federal rules restrict any use of the information to criminally investigate or prosecute any alcohol or drug abuse patient.[facility] Encounter Details Date Type Department Care Team (Late st Contact Info) Description 05/08/2022 Patient Msg Rheumatology [address] [place] [address] Oren Liao APRN.PEDIATRIC ANESTHESIOLOGIST [address] [place] [phone] Request an Appointment Social History Tobacco Use Types Packs/Day Years Used Date Smoking Tobacco: Never PHQ-2 Answer Date Recorded PHQ-2 score 2 05/09/2020 Area Deprivation Index Answer Date Nathan rded National Score (1-100), lower number is lower ri sk Not on file 08/17/2020 State Score (1-10), lower number is lower risk N ot on file 08/17/2020 Data from: https://www.neighborhoodatlas.medicine.[facility].edu/. Last address used for calculation Not on file 08/17/2020 Comments Unknown Sex and Gender Information Value Date Recorded Sex Assigned at Not on file Legal Sex Female 4:20 PM EDT Gender Identity Not on file Sexual Orientation Not on file COVID-19 Exposure Response Date Recorded In the last 10 days, have yo u been in contact with someone who was confirmed or suspected to have Coronavirus/COVID-19? Unable to assess 05/10/2022 9:42 AM EDT documented as of this encounter Plan of Treatment Not on file documented as of this encounter Visit Diagnoses Not on filedocumented in this encounter Care Teams Loan Expeditor Relationship Specialty Start Date End Date Ramirez Bob PA [address] [place], [place] [address] [address] PCP - General Family Medicine 04/13/19 documented as of this encounter
--- OUTSIDE RECORDS SUMMARY | 2025-03-19 19:49 | XMS_ITS | Encounter Summary ---
Author Organization [facility] Address [address] [place] [address] Care Team Providers Care Semiconductor Bonder Name Role Phone Ramirez Bob Primary Care Provider [phone] Source Comments In the event this information is protected by the Federal Confidentiality of Alcohol and Drug AbusePatient Records regulations: The Federal rules restrict any use of the information to criminally investigate or prosecute any alcohol or drug abuse patient.[facility] Encounter Details Date Type Department Care Team (Late st Contact Info) Description 04/29/2022 Patient Msg Rheumatology [address] [place] [address] Omaira Guzman MD [address] [place], [place] [phone] Request an Appointment Social History Tobacco Use Types Packs/Day Years Used Date Smoking Tobacco: Never PHQ-2 Answer Date Recorded PHQ-2 score 2 05/09/2020 Area Deprivation Index Answer Date Nathan rded National Score (1-100), lower number is lower ri sk Not on file 08/17/2020 State Score (1-10), lower number is lower risk N ot on file 08/17/2020 Data from: https://www.neighborhoodatlas.medicine.[facility].edu/. Last address used for calculation Not on [...] on filedocumented in this encounter Care Teams Semiconductor Bonder Relationship Specialty Start Date End Date Ramirez Bob PA [address] [place] [address] PCP - General Family Medicine 04/13/19 documented as of this encounter
[2025-03-22 13:08] LABS: Age Gdln ACOG Testing Note (.); IGP, Aptima HPV, rfx 16/18,45 Note (.)
== END 2025-03-19 19:46 | disposition home or self-care (01) ==
LOC: LAB 19:45
PROVIDERS: Visit Provider Obstetrics & Gynecology
DX: Z01.419 Encounter for gynecological examination (general) (routine) without abnormal findings (principal)
CPT/HCPCS: 87624; 88175